=== PATIENT | female | born 1965 | race Caucasian/White ===

== ENCOUNTER 2018-09-15 05:11 | Emergency (ER) | payer MEDICAID ==
[~2018-09-15] VITALS: Ht 167.6 cm; Wt 77.1 kg
[~2018-09-15 05:11] MED LIST: ZOLP10TA PO
[2018-09-15 05:44] LABS: Urine Bacteria FEW /hpf (None Seen); Urine Blood Negative /uL (Negative); Urine Hyaline Cast FEW /lpf (0 - 2); Urine Mucus FEW (None Seen); Urine Specific Gravity 1.007 (1.001-1.035); Urine WBC 1 /hpf (0 - 5)
[2018-09-15 06:47] LABS: Basophils # (auto) 0.1 uL; Basophils % (auto) 2.4 % (0.0-2.0); Eosinophils # (auto) 0.2 uL; Eosinophils % (auto) 2.8 % (0.0-7.0); Hemoglobin 14.1 g/dL (12.2-16.2); Lymphocytes # (auto) 1.3 uL; Mean Corpuscular Hemoglobin 28.5 pg (28.0-32.0); Mean Corpuscular Hgb Conc. 32.1 g/dL (32.0-36.0); Mean Corpuscular Volume 88.9 fL (80.0-100.0); Monocytes # (auto) 0.5 uL; Monocytes % (auto) 8.9 % (0.0-12.0); Neutrophils # (auto) 3.9 uL; Neutrophils % (auto) 63.9 % (37.0-80.0); Nucleated Red Blood Cells % 0.1 %; Platelet Count (auto) 306 10^3/uL (140-450); Red Blood Cells 4.95 10^6/uL (4.0-5.20); Red Cell Distribution Width 16.7 % (11.8-14.3); White Blood Cell 6.1 10^3/uL (4.4-10.8)
[2018-09-15 07:00] LABS: INR 0.93 (0.9-1.15); Partial Thromboplastin Time 25.7 sec (23.78-33.04)
[2018-09-15 07:04] LABS: Albumin 3.7 g/dL (3.4-5.0); Anion Gap 8 (5-15); Blood Urea Nitrogen 9 mg/dL (7-18); Calcium 8.5 mg/dL (8.5-10.1); Carbon Dioxide 26 mmol/L (21-32); Chloride 105 mmol/L (98-107); Glucose 101 mg/dL (74-106); Magnesium 2.7 mg/dL (1.6-2.6); Sodium 139 mmol/L (136-145)
[2018-09-15 07:10] LABS: Alanine Aminotransferase 19 U/L (13-56); Alkaline Phosphatase 64 U/L (45-117); Aspartate Aminotransferase 18 U/L (15-37); BUN/Creatinine Ratio 10.7; Bilirubin, Total 0.4 mg/dL (0.2-1.0); GFR African American 91 mL/min; GFR Non-African American 75 mL/min; Total Protein 7.8 g/dL (6.4-8.2)
[2018-09-15] MEDS ORDERED: PANTOPRAZOLE 40 MG/10 ML VIAL IV ONE (08:15)
[2018-09-15 09:00] VITALS: BP 132/77
== END 2018-09-15 10:40 | disposition home or self-care (01) ==
LOC: EDBD 05:11 → ER 05:11
DX: N20.0 Calculus of kidney (principal); M19.90 Unspecified osteoarthritis, unspecified site; J45.909 Unspecified asthma, uncomplicated; K21.9 Gastro-esophageal reflux disease without esophagitis; F17.210 Nicotine dependence, cigarettes, uncomplicated; F12.90 Cannabis use, unspecified, uncomplicated; Z88.0 Allergy status to penicillin; Z90.49 Acquired absence of other specified parts of digestive tract; Z88.8 Allergy status to other drugs, medicaments and biological substances; Z79.899 Other long term (current) drug therapy
CPT/HCPCS: 36415; 71045; 74176; 80053; 81001; 81025; 83735; 84484; 85025; 85610; 85730

== ENCOUNTER 2019-08-25 06:34 | Emergency (ER) | payer MEDICAID ==
[~2019-08-25] VITALS: Ht 170.2 cm; Wt 99.8 kg
[2019-08-25 07:34] VITALS: BP 110/79
[2019-08-25] MEDS ORDERED: KETOROLAC TROMETH 60MG/2ML VIAL IM ONE (08:15)
== END 2019-08-25 08:47 | disposition home or self-care (01) ==
LOC: ER 06:34
DX: M50.10 Cervical disc disorder with radiculopathy, unspecified cervical region (principal); M19.90 Unspecified osteoarthritis, unspecified site; J45.909 Unspecified asthma, uncomplicated; K21.9 Gastro-esophageal reflux disease without esophagitis; Z88.0 Allergy status to penicillin; Z88.8 Allergy status to other drugs, medicaments and biological substances
CPT/HCPCS: 72040; 93005; 96372; 99283; J1885

== ENCOUNTER 2021-01-08 07:23 | Inpatient (IN) | payer MEDICAID ==
[~2021-01-08] VITALS: Ht 167.6 cm; Wt 101.1 kg
[2021-01-08] MEDS ORDERED: MORPHINE SULFATE 4 MG/ML SYR/VIAL IV ONE (08:15)
[2021-01-08] MEDS ORDERED: PROMETHAZINE HCL 25 MG/ML 1ML IV PRN (08:15)
[2021-01-08] MEDS ORDERED: SODIUM CHLORIDE 0.9% 1,000 ML IVB ONE (08:15)
[2021-01-08 08:23] LABS: Basophils # (auto) 0.1 10 ^3/uL (0-0.2); Basophils % (auto) 0.6 % (0.0-2.0); Eosinophils # (auto) 0 10 ^3/uL (0-0.8); Hemoglobin 15.9 g/dL (12.2-16.2); Lymphocytes # (auto) 1.4 10 ^3/uL (0.4-5.4); Lymphocytes % (auto) 10.8 % (10.0-50.0); Mean Corpuscular Hemoglobin 31.2 pg (28.0-32.0); Mean Corpuscular Hgb Conc. 33.7 g/dL (32.0-36.0); Mean Corpuscular Volume 92.6 fL (80.0-100.0); Monocytes # (auto) 0.9 10 ^3/uL (0-1.3); Monocytes % (auto) 6.9 % (0.0-12.0); Neutrophils # (auto) 10.2 10 ^3/uL (1.6-8.6); Neutrophils % (auto) 81.7 % (37.0-80.0); Nucleated Red Blood Cells % 0.1 %; Platelet Count (auto) 283 10^3/uL (140-450); Red Blood Cells 5.08 10^6/uL (4.0-5.20); Red Cell Distribution Width 14.2 % (11.8-14.3); White Blood Cell 12.5 10^3/uL (4.4-10.8)
[2021-01-08 08:33] LABS: Albumin 4.4 g/dL (3.4-5.0); Potassium 3.1 mmol/L (3.5-5.1)
[2021-01-08 08:38] LABS: Bilirubin, Total 1.1 mg/dL (0.2-1.0); Total Protein 8.3 g/dL (6.4-8.2)
[2021-01-08 08:47] LABS: Magnesium 2.9 mg/dL (1.6-2.6)
[2021-01-08] MEDS ORDERED: GASTROGRAFIN 120 ML SOL ONE (08:58)
[2021-01-08] MEDS ORDERED: EZ-GAS II GRANULES (RADIOLOGY USE) PO ONE (08:59)
[2021-01-08 10:56] LABS: Urine Bacteria NONE SEEN /hpf (None Seen); Urine Blood Negative /uL (Negative); Urine Hyaline Cast FEW /lpf (0 - 2); Urine Mucus FEW (None Seen); Urine Specific Gravity 1.037 (1.001-1.035); Urine WBC 3 /hpf (0 - 5)
[2021-01-08] MEDS ORDERED: SODIUM CHLORIDE 0.9% 1,000 ML IV ONE (11:15)
[2021-01-08] MEDS ORDERED: MORPHINE SULF INJ 2 MG/ML SYRINGE 1ML IV PRN (12:15)
[2021-01-08] MEDS ORDERED: ONDANSETRON HCL 4 MG/2 ML VIAL IV PRN (12:15)
[2021-01-08] MEDS ORDERED: NITROGLYCERIN 0.4 MG SL TAB SL PRN (12:15)
[2021-01-08] MEDS: D5W 5% 1,000 ML IV SCH ×2 (13:05→22:15)
[2021-01-08] MEDS: POTASSIUM CHL 20MEQ/100ML 100 ML IV SCH ×2 (13:06→18:07)
[2021-01-08 13:28] LABS: INR 1.02 (0.9-1.15); Partial Thromboplastin Time 24.6 sec (23.0-31.2)
[2021-01-08 17:00] VITALS: BP 123/72
[2021-01-08] MEDS: MORPHINE SULF INJ 2 MG/ML SYRINGE 1ML IV PRN ×2 (18:07→21:27)
[2021-01-08] MEDS ORDERED: OMEP20TA PO (18:43)
[2021-01-08] MEDS ORDERED: GABA300C10 PO (18:43)
[2021-01-08] MEDS ORDERED: HYDR1TAB97 PO (18:43)
[2021-01-08] MEDS: PANTOPRAZOLE 40 MG/10 ML VIAL INJ IV SCH (21:27)
[2021-01-08 22:39] VITALS: BP 141/79
[2021-01-09] MEDS: MORPHINE SULF INJ 2 MG/ML SYRINGE 1ML IV PRN (01:34)
[2021-01-09 05:05] VITALS: BP 148/75
[2021-01-09] MEDS: D5W 5% 1,000 ML IV SCH (06:50)
[2021-01-09] MEDS ORDERED: diphenhdrAMINE HCL 50 MG/1 ML VL ONE (08:25)
[2021-01-09] MEDS ORDERED: LIDOCAINE VISCOUS 2% 15ML UD ONE (08:25)
[2021-01-09 09:00] VITALS: BP 142/70
[2021-01-09] MEDS: MIDAZOLAM HCL 5 MG/ML-1ML VIAL ONE ×2 (10:03→10:06)
[2021-01-09] MEDS: fentaNYL CITRATE 100 MCG/2 ML VL ONE ×2 (10:03→10:06)
[2021-01-09 11:04] VITALS: BP 145/78
[2021-01-09] MEDS: PANTOPRAZOLE 40 MG/10 ML VIAL INJ IV SCH (11:32)
[2021-01-09] MEDS: SUCRALFATE 1 GM/10 ML ORAL SUSP PO SCH ×2 (11:35→16:45)
[2021-01-09 13:00] VITALS: BP 119/73
[2021-01-09] MEDS ORDERED: SUCR1SUS10 PO (14:07)
[2021-01-09] MEDS ORDERED: PANT40TA2 PO (14:07)
[2021-01-09 14:20] VITALS: BP 119/73
[2021-01-09 16:52] VITALS: BP 132/81
== END 2021-01-09 17:20 | disposition home or self-care (01) | DRG 241 ==
LOC: ER 07:23 → EDBD 07:23 → TELE 12:08 → TELE-CENTR 16:58
PROVIDERS: ADMIT Hospitalist; ATTEND Hospitalist
PROC: 0W3P8ZZ Control Bleeding in Gastrointestinal Tract, Via Natural or Artificial Opening Endoscopic (ICD-10-PCS; 2021-01-09)
PROC: 0DB58ZX Excision of Esophagus, Via Natural or Artificial Opening Endoscopic, Diagnostic (ICD-10-PCS; principal; 2021-01-09 09:59)
DX: K29.01 Acute gastritis with bleeding (principal); K22.2 Esophageal obstruction; K20.91 Esophagitis, unspecified with bleeding; K86.1 Other chronic pancreatitis; E86.0 Dehydration; E87.6 Hypokalemia; J45.909 Unspecified asthma, uncomplicated; Z20.822 Contact with and (suspected) exposure to COVID-19; N20.0 Calculus of kidney; Z88.0 Allergy status to penicillin; Z88.8 Allergy status to other drugs, medicaments and biological substances; Z90.49 Acquired absence of other specified parts of digestive tract
CPT/HCPCS: 36415; 43239; 71045; 74220; 80053; 81001; 83690; 83735; 85025; 85610; 85730; 87426; 93005; 96361; 96374; 96375; C9113; G0378; J2250; J2405; J3480

== ENCOUNTER 2022-04-30 07:03 | Emergency (ER) | payer MEDICAID ==
[~2022-04-30] VITALS: Ht 170.2 cm; Wt 90.0 kg
[~2022-04-30 07:03] MED LIST changes: +GABA300C10 PO; +HYDR1TAB97 PO; +PANT40TA2 PO; +SUCR1SUS10 PO
[2022-04-30] MEDS ORDERED: SODIUM CHLORIDE 0.9% 1,000 ML IV ONE ×2 (08:00)
[2022-04-30] MEDS ORDERED: LORazepam 2MG/ML-1ML VIAL IV ONE (08:00)
[2022-04-30 08:40] LABS: Basophils # (auto) 0.1 10 ^3/uL (0-0.2); Basophils % (auto) 0.9 % (0.0-2.0); Eosinophils # (auto) 0 10 ^3/uL (0-0.8); Eosinophils % (auto) 0.1 % (0.0-7.0); Hematocrit 48.5 % (36.0-46.0); Hemoglobin 15.8 g/dL (12.2-16.2); Lymphocytes # (auto) 1.4 10 ^3/uL (0.4-5.4); Lymphocytes % (auto) 15.5 % (10.0-50.0); Mean Corpuscular Hemoglobin 29.7 pg (28.0-32.0); Mean Corpuscular Hgb Conc. 32.5 g/dL (32.0-36.0); Mean Corpuscular Volume 91.5 fL (80.0-100.0); Monocytes # (auto) 0.7 10 ^3/uL (0-1.3); Monocytes % (auto) 7.7 % (0.0-12.0); Neutrophils # (auto) 6.6 10 ^3/uL (1.6-8.6); Neutrophils % (auto) 75.8 % (37.0-80.0); Nucleated Red Blood Cells % 0.1 %; Red Cell Distribution Width 13.7 % (11.8-14.3); White Blood Cell 8.7 10^3/uL (4.4-10.8)
[2022-04-30 09:09] LABS: Albumin 4.3 g/dL (3.4-5.0); Calcium 9.9 mg/dL (8.5-10.1)
[2022-04-30 09:14] LABS: BUN/Creatinine Ratio 33.3; Total Protein 7.5 g/dL (6.4-8.2)
[2022-04-30 09:22] LABS: Potassium 3.6 mmol/L (3.5-5.1)
[2022-04-30] MEDS ORDERED: GLUCAGON HYDROCHLORIDE (RDNA) 1 MG VIAL IV ONE (11:15)
[2022-04-30] MEDS ORDERED: PANT40TA2 PO (12:29)
[2022-04-30] MEDS ORDERED: MORPHINE SULFATE INJ 2 MG/ml SYRG IV ONE (14:30)
[2022-04-30] MEDS ORDERED: ONDANSETRON HCL 4 MG/2 ML VIAL IV ONE (14:30)
[2022-04-30 15:25] LABS: Urine Bacteria MANY /hpf (None Seen); Urine Blood Negative /uL (Negative); Urine Specific Gravity 1.031 (1.001-1.035); Urine WBC 57 /hpf (0 - 5); Urine WBC Clumps PRESENT /hpf (None Seen)
[2022-04-30 16:00] VITALS: BP 115/58
== END 2022-04-30 15:30 | disposition home or self-care (01) ==
LOC: ER 07:03 → EDUNIT# 07:03 → EDBD 07:03 → ER 15:30
DX: K29.70 Gastritis, unspecified, without bleeding (principal); F41.9 Anxiety disorder, unspecified; J45.909 Unspecified asthma, uncomplicated; K21.9 Gastro-esophageal reflux disease without esophagitis; Z90.49 Acquired absence of other specified parts of digestive tract; Z88.0 Allergy status to penicillin
CPT/HCPCS: 36415; 70360; 74176; 80053; 81001; 84484; 85025; 93005; 96361; 96374; 96375; 99285; J1610; J2270; J2405; J7030

== ENCOUNTER 2023-05-28 19:43 | Emergency (ER) | payer MEDICAID ==
[~2023-05-28] VITALS: Ht 170.2 cm; Wt 96.4 kg
[~2023-05-28 19:43] MED LIST changes: +GABA-1250 PO; -GABA300C10 PO; -SUCR1SUS10 PO; +SUCR1SUS26 PO
[2023-05-28 20:10] LABS: Basophils # (auto) 0.1 10 ^3/uL (0-0.2); Basophils % (auto) 2.2 % (0.0-2.0); Eosinophils # (auto) 0.3 10 ^3/uL (0-0.8); Eosinophils % (auto) 5.6 % (0.0-7.0); Hematocrit 45.1 % (36.0-46.0); Hemoglobin 14.8 g/dL (12.2-16.2); Lymphocytes # (auto) 1.7 10 ^3/uL (0.4-5.4); Lymphocytes % (auto) 30.5 % (10.0-50.0); Mean Corpuscular Hemoglobin 30.5 pg (28.0-32.0); Mean Corpuscular Hgb Conc. 32.7 g/dL (32.0-36.0); Mean Corpuscular Volume 93.2 fL (80.0-100.0); Monocytes # (auto) 0.5 10 ^3/uL (0-1.3); Monocytes % (auto) 8.2 % (0.0-12.0); Neutrophils # (auto) 2.9 10 ^3/uL (1.6-8.6); Neutrophils % (auto) 53.5 % (37.0-80.0); Nucleated Red Blood Cells % 0.1 %; Red Blood Cells 4.84 10^6/uL (4.0-5.20); Red Cell Distribution Width 14.1 % (11.8-14.3); White Blood Cell 5.5 10^3/uL (4.4-10.8)
[2023-05-28 20:28] LABS: Partial Thromboplastin Time 27.3 SEC (24.5-34.5); Prothrombin Time 10.5 sec (9.3-11.8)
[2023-05-28 20:33] LABS: Alanine Aminotransferase 25 U/L (7-40); Albumin 4.4 g/dL (3.2-4.8); Alkaline Phosphatase 79 U/L (46-116); Anion Gap 4 (5-15); Aspartate Aminotransferase 14 U/L (13-40); BUN/Creatinine Ratio 13.2 (10.0-20.0); Bilirubin, Total 0.5 mg/dL (0.2-1.0); Blood Urea Nitrogen 10 mg/dL (9-23); Calcium 9.8 mg/dL (8.7-10.4); Carbon Dioxide 30 mmol/L (20-30); Chloride 107 mmol/L (98-107); Glucose 108 mg/dL (74-106); Potassium 4.5 mmol/L (3.5-5.1); Sodium 141 mmol/L (136-145); Total Protein 6.5 g/dL (5.7-8.2)
[2023-05-29 02:48] VITALS: BP 118/92; PULSE 76; RESP 18; TEMP 98.1; O2SAT 94
[2023-05-29] MEDS ORDERED: HYDROcodone-ACET 10/325MG TAB PO ONE (04:45)
== END 2023-05-29 05:55 | disposition home or self-care (01) ==
LOC: ER 19:43 → EDBD 19:43 → ER 05-29 05:55
DX: M47.892 Other spondylosis, cervical region (principal); R07.89 Other chest pain; J45.909 Unspecified asthma, uncomplicated; K21.9 Gastro-esophageal reflux disease without esophagitis; Z90.49 Acquired absence of other specified parts of digestive tract; Z88.0 Allergy status to penicillin; Z88.8 Allergy status to other drugs, medicaments and biological substances; Z79.899 Other long term (current) drug therapy
CPT/HCPCS: 36415; 71045; 71250; 72125; 80053; 83880; 84484; 85025; 85610; 85730; 93005

== ENCOUNTER 2024-06-11 15:34 | Emergency (ER) | payer MEDICAID ==
[~2024-06-11] VITALS: Ht 167.6 cm; Wt 89.1 kg
[2024-06-11] MEDS: MORPHINE SULFATE 4 MG/ML SYR/VIAL IV ONE ×3 (15:45→20:00)
[2024-06-11 16:36] LABS: Basophils # (auto) 0.1 10 ^3/uL (0-0.2); Basophils % (auto) 0.5 % (0.0-2.0); Eosinophils # (auto) 0 10 ^3/uL (0-0.8); Hematocrit 51.4 % (36.0-46.0); Hemoglobin 17.3 g/dL (12.2-16.2); Lymphocytes # (auto) 1.6 10 ^3/uL (0.4-5.4); Lymphocytes % (auto) 14.3 % (10.0-50.0); Mean Corpuscular Hemoglobin 30.9 pg (28.0-32.0); Mean Corpuscular Hgb Conc. 33.7 g/dL (32.0-36.0); Mean Corpuscular Volume 91.7 fL (80.0-100.0); Monocytes # (auto) 0.7 10 ^3/uL (0-1.3); Monocytes % (auto) 6.4 % (0.0-12.0); Neutrophils # (auto) 8.7 10 ^3/uL (1.6-8.6); Neutrophils % (auto) 78.8 % (37.0-80.0); Nucleated Red Blood Cells % 0.1 %; Platelet Count (auto) 358 10^3/uL (140-450); Red Blood Cells 5.61 10^6/uL (4.0-5.20); Red Cell Distribution Width 13.8 % (11.8-14.3)
[2024-06-11 16:56] LABS: Alanine Aminotransferase 32 U/L (7-40); Albumin 5.2 g/dL (3.2-4.8); Alkaline Phosphatase 103 U/L (46-116); Anion Gap 9 (5-15); Aspartate Aminotransferase 30 U/L (13-40); BUN/Creatinine Ratio 16.3 (10.0-20.0); Blood Urea Nitrogen 15 mg/dL (9-23); Calcium 10.8 mg/dL (8.7-10.4); Carbon Dioxide 26 mmol/L (20-31); Chloride 103 mmol/L (98-107); Glucose 135 mg/dL (74-106); Lipase 53 U/L (12-53); Potassium 3.1 mmol/L (3.5-5.1); Sodium 138 mmol/L (136-145)
[2024-06-11 16:57] LABS: Bilirubin, Total 1.1 mg/dL (0.2-1.0); Total Protein 8.2 g/dL (5.7-8.2)
[2024-06-11 17:00] VITALS: TEMP 98
[2024-06-11] MEDS: SODIUM CHLORIDE 0.9% 1,000 ML IV ONE (17:00)
[2024-06-11] MEDS: METOCLOPRAMIDE HCL 5MG/ml INJ 2ml VIAL IV ONE (17:00)
[2024-06-11] MEDS: ONDANSETRON HCL 4 MG/2 ML VIAL IV ONE (17:09)
[2024-06-11] MEDS: LIDOCAINE VISCOUS 2% 15ML UD PO ONE (17:10)
[2024-06-11] MEDS: diphenhdrAMINE HCL 50 MG/1 ML VL IV ONE (17:10)
[2024-06-11] MEDS: MAALOX PLUS or MAALOX 30 ML PO ONE (17:11)
[2024-06-11] MEDS: FAMOTIDINE INJECTION 40 MG in SODIUM CHL 0.9% 100 ML IV ONE (17:55)
[2024-06-11] MEDS ORDERED: FAMO20TA10 PO (19:46)
[2024-06-11] MEDS ORDERED: LIDO2SOL26 MT (19:46)
[2024-06-11] MEDS: POTASSIUM CHL 20 Meq TABLET PO ONE (20:14)
[2024-06-11 20:15] VITALS: BP 127/86; PULSE 89; RESP 19; O2SAT 95
[2024-06-11 21:25] LABS: Urine Bacteria None Seen /hpf (None Seen)
[2024-06-11 22:31] LABS: Urine Blood Negative /uL (Negative); Urine Clarity Clear (Clear); Urine Color Yellow (Yellow); Urine Mucus FEW (None Seen); Urine Protein, UAD 1+ (Negative); Urine Specific Gravity 1.038 (1.001-1.035); Urine Urobilinogen 2 mg/dL (Negative); Urine WBC 3 /hpf (0 - 5)
== END 2024-06-11 20:30 | disposition home or self-care (01) ==
LOC: ER 15:34
DX: K29.70 Gastritis, unspecified, without bleeding (principal); K21.9 Gastro-esophageal reflux disease without esophagitis; J45.909 Unspecified asthma, uncomplicated; Z87.11 Personal history of peptic ulcer disease; Z87.19 Personal history of other diseases of the digestive system; Z90.49 Acquired absence of other specified parts of digestive tract; Z79.899 Other long term (current) drug therapy; Z88.0 Allergy status to penicillin
CPT/HCPCS: 36415; 76705; 80053; 81001; 82962; 83690; 84484; 85025; 86850; 86900; 86901; 96361; 96365; 96366; 96375; 96376; 99285; J1200; J2270; J2405; J3490; J7030